=== PATIENT | female | born 1965 | race Caucasian/White ===

== ENCOUNTER → 2016-09-17 | Outpatient (CLI) | payer OTHER ==
[~2016-09-17] MED LIST: BENZONATATE200 M1 PO; CLINDAMYCIN HC300 MG PO; HYDROCORTISONE0.9 GM TOP; KEFLEX500 M1 PO; MOTRIN600 M2 PO; NO MEDICATIONS; NORCO 10-325 TA1 TAB PO; PREDNISONE PO; ULTRAM PO; VOLTAREN75 MG PO
--- NOTE | ~2016-09-17 | US84 ---
[id number] [facility]. [facility] [address]. [place], [place] [address] [id number] O MR#: [id number] Acc #: [id number] NAME: KELVIN DENNIS : 1965 SEX: F STUDY DATE/TIME: 09/17/2016 11:29 UNIT: CNIV ROOM: STUDY DESCRIPTION: US LE Veins Complete Haroon Stdy Attending Physician: Hernesto Del Cid M.D. Referring Physician: Hernesto Del Cid M.D. Ordering Physician: Hernesto Del Cid M.D. Primary Care Physician: Hernesto Del Cid M.D. MEDICAL IMAGING REPORT This report is preliminary unless electronic signature is present EXAM Bilateral lower extremity venous duplex 09/17/2016 HISTORY Bilateral lower extremity numbness, tingling, edema at ankles and lower extremity pain; symptoms for 3 years, left greater than right for the last 2 months. Evaluate for deep vein thrombosis. TECHNIQUE Venous ultrasound examination of both lower extremities was performed using grayscale, spectral Doppler and color flow Doppler imaging. FINDINGS The examination is negative. There is no evidence of deep venous thrombus from the groin to the lower calf bilaterally. Visualized greater saphenous veins are also patent. IMPRESSION Negative examination. No evidence of lower extremity deep venous thrombosis. Dictated by... Usman Duran M.D. THIS IS AN ELECTRONICALLY VERIFIED REPORT Usman Duran M.D. at 09/18/2016 2:10 PM KRT/to TD: 09/17/2016 16:48 JOB #: [id number] MEDICAL IMAGING REPORT Page 1 of 1 COPY
== END | disposition home or self-care (01) ==
LOC: CNIV 10:23
DX: R20.0 Anesthesia of skin (principal); R20.2 Paresthesia of skin; R60.0 Localized edema
CPT/HCPCS: 93970

== ENCOUNTER 2016-10-11 23:03 | Emergency (ER) | payer OTHER ==
[~2016-10-11] VITALS: Ht 172.7 cm; Wt 63.5 kg
--- NOTE | ~2016-10-11 | CR141 ---
[facility] A Service of [facility] RADIOLOGY TEXT RESULTS PATIENT: KELVIN DENNIS LOCATION: SED : 61 UNIT #: [id number] AGE: [address]: Ana Bruno SEX: F ORDER DR: [id number] [place] [id number] E MR#: [id number] Acc #: [id number] NAME: KELVIN DENNIS : 1965 SEX: F STUDY DATE/TIME: 10/12/2016 0:22 UNIT: SED ROOM: STUDY DESCRIPTION: CR Hand Min 3 Views Lt Attending Physician: Ana Bruno Pa-C Ordering Physician: Physician Non-Staff Primary Care Physician: Hernesto Del Cid M.D. MEDICAL IMAGING REPORT This report is preliminary unless electronic signature is present. EXAM Three views left hand DATE: 10/12/2016 HISTORY Left hand pain today after hand was caught in a blower. COMPARISON None. FINDINGS AP, lateral, and oblique projections of the hand show good mineralization with normal carpal, metacarpal, and phalangeal anatomy without indication of fracture, dislocation, or soft tissue radiopaque foreign body. IMPRESSION Normal hand. Dictated by... Milady Bass M.D. THIS IS AN ELECTRONICALLY VERIFIED REPORT Milady Bass M.D. at 10/15/2016 8:41 AM TAWANDA/alyssa TD: 10/12/2016 03:54 JOB #: [id number] MEDICAL IMAGING REPORT [facility] A Service of [facility] RADIOLOGY TEXT RESULTS PATIENT: KELVIN DENNIS LOCATION: SED : 61 UNIT #: [id number] AGE: [address]: Ana Bruno SEX: F ORDER DR: Page 1 of 1
--- NOTE | ~2016-10-11 | CR281 ---
[facility]. [facility] A Service [facility] RADIOLOGY TEXT RESULTS PATIENT: KELVIN DENNIS LOCATION: SED : 61 UNIT #: [id number] AGE: [address]: Ana Bruno SEX: F ORDER DR: [id number] [place] [id number] E MR#: [id number] Acc #: [id number] NAME: KELVIN DENNIS : 1965 SEX: F STUDY DATE/TIME: 10/12/2016 0:22 UNIT: SED ROOM: STUDY DESCRIPTION: CR Wrist Min 3 View Lt Attending Physician: Ana Bruno Pa-C Ordering Physician: Physician Non-Staff Primary Care Physician: Hernesto Del Cid M.D. MEDICAL IMAGING REPORT This report is preliminary unless electronic signature is present. EXAM Three-views left wrist DATE 10/12/2016 HISTORY Left wrist pain after hand was caught in a blower today. FINDINGS Wrist evaluation in multiple projections shows normal mineralization of the bony structures about the wrist and satisfactory articular relationship of the radius and ulna to the proximal carpal row and of the distal carpal segments to the metacarpal bases. There is no indication of fracture or dislocation, and no soft tissue radiopaque foreign body is present. No congenital defects are apparent. IMPRESSION Normal wrist. Dictated by... Milady Bass M.D. THIS IS AN ELECTRONICALLY VERIFIED REPORT Milady Bass M.D. at 10/15/2016 8:[address] [facility] TD: 10/12/2016 03:54 JOB #: [id number] MEDICAL IMAGING REPORT [facility] A Service [facility] RADIOLOGY TEXT RESULTS PATIENT: KELVIN DENNIS LOCATION: SED : 61 UNIT #: [id number] AGE: [address]: Ana Bruno SEX: F ORDER DR: Page 1 of 1
[~2016-10-11 23:03] MED LIST changes: -NO MEDICATIONS
[2016-10-11] MEDS ORDERED: NO MEDICATIONS (23:33)
== END 2016-10-12 00:55 | disposition home or self-care (01) ==
LOC: SED 23:03
DX: S60.021A Contusion of right index finger without damage to nail, initial encounter (principal); Z23 Encounter for immunization; F17.200 Nicotine dependence, unspecified, uncomplicated; W23.0XXA Caught, crushed, jammed, or pinched between moving objects, initial encounter; Y92.009 Unspecified place in unspecified non-institutional (private) residence as the place of occurrence of the external cause
CPT/HCPCS: 29130; 73110; 73130; 90471; 90715; 99283